=== PATIENT | male | born 1970 | race African-American/Black ===

== ENCOUNTER 2016-09-09 12:57 | Emergency (ER) | payer SELFPAY ==
--- NOTE | ~2016-09-09 | ER ---
PATIENT'S NAME: [facility] AGE: 46 Y [address] ROOM: [place] [address] LOCATION: ED ADMIT DATE: 09/09/2016 ER/Outpatient Report DISCHARGE DATE: 09/09/2016 FAMILY PHYSICIAN: [place] Orellana MD ATTENDING PHYSICIAN: Guillermo Norris Time of Arrival: 1257 hours. Time of Evaluation: 1257 hours. CHIEF COMPLAINT: Chest pain. HISTORY OF PRESENT ILLNESS: This is a 46-year-old male who presents to the ER, who states he is having some chest discomfort that started around 04:30 this morning when he was getting ready to work. The patient states his pain is located in the midepigastric area and radiates into his chest a little bit. He states it makes his right arm feel a little bit numb as well. He states it makes him feel nauseated. He has had no vomiting. He states sometimes he feels short of breath and he was diaphoretic earlier. He states that he has had no history of heartburn. No troubles with his bowel movements or urination. No fevers. No upper respiratory symptoms. He states he is an alcoholic. He states he has not had a drink for the past 2 weeks. He also states he smokes cigars. He denies any other problems at this time. ALLERGIES: NO KNOWN ALLERGIES. MEDICATIONS: None. PAST MEDICAL HISTORY: Alcoholism. SOCIAL HISTORY: Smokes cigars. Drinks alcohol daily, states he quit 2 weeks ago. REVIEW OF SYSTEMS: All systems reviewed and were negative with the exception of those discussed in the HPI. PHYSICAL EXAMINATION: VITAL SIGNS: Height 6 feet stated, weight 107.4 kg taken, blood pressure is 140/85, pulse 89, respirations 16, temperature 96.2 degrees tympanically, and saturations 96% on room air. Jayashree Coma Score is 15. PATIENT'S NAME: [facility] AGE: 46 Y [address] ROOM: [place] [address] LOCATION: ED ADMIT DATE: 09/09/2016 ER/Outpatient Report DISCHARGE DATE: 09/09/2016 FAMILY PHYSICIAN: [place] Orellana MD ATTENDING PHYSICIAN: Guillermo Norris GENERAL: Alert, calm, well-developed male, in no acute distress. HEENT: Head: Normocephalic. Eyes: Pupils are equal and reactive to light. Does display moist mucous membranes. LUNGS: Clear to auscultation bilaterally. HEART: Regular rate and rhythm. ABDOMEN: Soft. He does have some tenderness in the midepigastric region with palpation. He has good bowel sounds throughout. No masses were palpated. EXTREMITIES: No clubbing or cyanosis. I do not appreciate any pedal edema. NEUROLOGIC: Cranial nerves II through XII grossly intact. Gait is steady without assistance. LABORATORY DATA AND X-RAYS: CBC: White count is 6.3, hemoglobin is 14.6, platelets 234, and ANC is 4.1. INR is 1.01. CMS is unremarkable. Magnesium is 2.4. Alcohol level is 0.037. Amylase 79, lipase 159, CPK is 333, CK-MB is 2.2, and troponin I is less than 0.040. D-dimer was negative at 0.27. Second set of cardiac enzymes: CPK is 304, CK-MB is 1.9, and troponin I is less than 0.040. EKG shows sinus rhythm both initial and 2 hours. Chest x-ray was negative for any infiltrate. IMPRESSION: Chest discomfort. ASSESSMENT AND PLAN: Discussed the patient's care with Dr. Norris. We did initially give him 4 baby aspirin and we gave him a GI cocktail. The patient slept his entire stay here in the emergency room. We will dismiss the patient to home. He was completely pain free upon his dismissal. Advised him to monitor his symptoms closely. He needs to follow up with his primary care physician in the next 1 to 2 days. Return here to the emergency room if any of his symptoms worsen. The patient understands and agrees with the care. FLORENTIN LAMBERT PA-C FOR DO ASHOK BYRD/placido /[id number] d: 09/10/16209 t: 09/15/161, OUTPATIENT REPORT
[2016-09-09 13:30] LABS: BASOPHIL % 0.3 %; EOSINOPHIL # 0.1 K/uL (0.0-0.5); EOSINOPHIL % 1.1 %; HEMATOCRIT 43.6 % (37.0-53.0); HEMOGLOBIN 14.6 g/dL (12.0-17.0); IMMATURE GRANULOCYTE % 0.3 %; LYMPHOCYTE # 1.6 K/uL (0.8-4.0); LYMPHOCYTE % 25.6 %; MCH 32.5 pg (27.0-34.0); MCHC 33.5 gm/dL (32.0-36.5); MCV 97.1 fl (83.0-98.0); MONOCYTE # 0.4 K/uL (0.0-1.0); MONOCYTE % 6.5 %; NEUTROPHIL # (ANC) 4.1 K/uL (1.4-9.0); NEUTROPHIL % 66.2 %; NRBC % 0 /100WBC (0-0.00); RBC 4.49 M/uL (4.00-6.00); RDW-CV 11.9 % (11.9-14.6); WBC 6.3 K/uL (4.0-11.0)
[2016-09-09 13:37] LABS: INR - (THERAPEUTIC) 1.01 (0.92-1.07); PROTIME 10.6 SECONDS (9.8-11.4); PTT 31 SECONDS (25-32)
[2016-09-09 13:45] LABS: ALBUMIN 3.9 gm/dL (3.5-5.0); ALK PHOS 68 IU/L (33-138); ALT 19 IU/L (12-78); AST 22 IU/L (10-40); BLOOD UREA NITROGEN 14 mg/dL (6-24); CALCIUM 8.6 mg/dL (8.5-10.5); CHLORIDE 110 mMol/L (96-110); CO2 27 mMol/L (22-32); CPK 333 IU/L (35-332); CREATININE 1.1 mg/dL (0.6-1.3); MAGNESIUM 2.4 mg/dL (1.8-2.6); SODIUM 142 mMol/L (135-145); TOTAL BILIRUBIN 0.7 mg/dL (0.0-1.5); TOTAL PROTEIN 7.2 g/dL (6.0-8.4)
[2016-09-09 14:24] LABS: PLATELET COUNT 234 K/uL (150-450)
[2016-09-09 14:25] LABS: MPV 15.4 fl (9.4-12.4)
[2016-09-09 15:34] LABS: CPK 304 IU/L (35-332)
== END 2016-09-09 15:56 | disposition disaster alternative care site (69) ==
LOC: GMED 12:57
PROVIDERS: Emergency Medicine; Physician Assistant Medical
DX: R07.89 Other chest pain (principal); F17.210 Nicotine dependence, cigarettes, uncomplicated
CPT/HCPCS: G0480